=== PATIENT | female | born 1955 | race American Indian/Alaskan Native ===

== ENCOUNTER 2017-11-15 08:33 | Outpatient (CLI) | payer OTHER ==
--- NOTE | 2017-11-15 11:22 | Mammography Report ---
BILATERAL DIGITAL SCREENING MAMMOGRAM with CAD: 11/15/17 CLINICAL: Routine screening. COMPARISON:None available. However, a prior mammogram was apparently done at [facility]. FINDINGS: The breasts are mostly fatty with a few bilateral residual retroareolar fibroglandular densities.An oval left outer circumscribed mass requires comparison with the prior mammogram.Bilateral partially calcified benign fibroadenomas. No architectural distortion or suspicious calcifications. IMPRESSION: Left breast mass requiring further evaluation. BI-RADS CATEGORY: 0 -- Additional Evaluation Required RECOMMENDATION: Comparison with a previous mammogram. We will attempt to obtain a prior mammogram for comparison. If we do not obtain a prior mammogram within 30 days, a revised report will be issued recommending a recall for additional imaging. Please be advised that the patient should not schedule an appointment for return until adequate time (at least 2 weeks) has passed for us to obtain the prior mammogram. ACR BI-RADS MAMMOGRAPHIC CODES: 0 = Needs additional imaging evaluation; 1 = Negative; 2 = Benign; 3 = Probably benign; 4 = Suspicious; 5 = Malignant; 6 = Known biopsy-proven malignancy COMMENT: 1. Dense breast tissue, i.e., adenosis, fibrocystic changes, etc., may obscure an underlying neoplasm. 2. Approximately 10% of cancers are not detected with mammography. 3. A negative mammography report should not delay biopsy if a clinically suspicious mass is present. COMMENT: Patient follow-up letters are generated via our [employer] application.
== END 2017-11-15 08:34 | disposition home or self-care (01) ==
LOC: SPVWC 08:33 → EDBD 09:00
PROVIDERS: ATTEND Family Medicine
DX: Z12.31 Encounter for screening mammogram for malignant neoplasm of breast (principal)
CPT/HCPCS: 77067

== ENCOUNTER 2017-12-04 08:03 | Outpatient (CLI) | payer OTHER ==
--- NOTE | 2017-12-04 09:55 | Ultrasound Report ---
LEFT DIGITAL DIAGNOSTIC MAMMOGRAM and LEFT BREAST ULTRASOUND: 12/04/17 08:03:00 CLINICAL: Recall to evaluate a mass. COMPARISON:11/15/17 screening FINDINGS: ML and spot magnification MLO and CC views were performed and demonstrate a persistent oval circumscribed mass at 3 o'clock approximately 3 cm from the nipple. Ultrasound of the left breast was performed from 11 o'clock to 3 o'clock. An oval solid hypoechoic slightly irregular mass at 3 o'clock 3 cm from the nipple correlates with the mammographic mass. It produces mild shadowing and measures 1.2 x 0.8 x 1.3 cm. An oval solid hypoechoic relatively smooth shadowing mass at 11 o'clock 6 cm from nipple measures 7 x 4 x 3 mm.In retrospect it is identifiable on the screening mammogram. A bilobed solid hypoechoic mass at 11 o'clock 6 cm from the nipple measures 1.0 x 1.0 x 0.6 cm. It contains calcifications and correlates with a benign appearing mass on the mammogram. An oval solid hypoechoic mass at 12 o'clock 2 cm from the nipple measures 7 x 4 x 6 mm. It is not identifiable on the mammogram. IMPRESSION: Three solid breast masses at 12 o'clock, 11 o'clock and 3 o'clock with morphologic features suggestive of benign fibroadenomas. And an Additional .0 cm solid mass at 11 o'clock with features which are diagnostic of benign fibroadenoma . BI-RADS CATEGORY: 3 -- Probably Benign RECOMMENDATION: Six month followup left breast ultrasound. At that time, we may also have received a comparison studies which will be helpful in determining the significance of these three probably benign masses. ACR BI-RADS MAMMOGRAPHIC CODES: 0 = Needs additional imaging evaluation; 1 = Negative; 2 = Benign; 3 = Probably benign; 4 = Suspicious; 5 = Malignant; 6 = Known biopsy-proven malignancy COMMENT: 1. Dense breast tissue, i.e., adenosis, fibrocystic changes, etc., may obscure an underlying neoplasm. 2. Approximately 10% of cancers are not detected with mammography. 3. A negative mammography report should not delay biopsy if a clinically suspicious mass is present. COMMENT: Patient follow-up letters are generated via our [employer] application.
== END 2017-12-04 08:04 | disposition home or self-care (01) ==
LOC: SPVWC 08:03
PROVIDERS: ATTEND Family Medicine
DX: D24.2 Benign neoplasm of left breast (principal)

== ENCOUNTER 2018-08-28 09:53 | Outpatient (CLI) | payer OTHER ==
--- NOTE | 2018-08-28 14:39 | Ultrasound Report ---
LEFT BREAST ULTRASOUND: 08/28/18 09:53:00 CLINICAL: 6 month followup for 4 solid masses. COMPARISON: 12/04/17 FINDINGS: Ultrasoundof the left breast demonstrated 3 slightly smaller solid hypoechoic masses at 11 o'clock 6 cm segment of the, 11:30 o'clock 6 cm from nipple and at 12 o'clock 2 cm from the nipple. They measure 9 x 6 x 10 mm, 5 x 3 x 5 mm and 5 x 3 x 5 mm respectively. All of the masses are smaller compared to last exam. In addition a solid smooth oval hypoechoic mass at 3 o'clock 3 cm from the nipple is slightly smaller and measures 11 x 9 mm compared to 12 x 8 x 13 mm. IMPRESSION: 4 solid left benign breast masses which are smaller compared to the last exam. BI-RADS 2 - - Benign RECOMMENDATION: Routine mammographic screening.
== END 2018-08-28 09:54 | disposition home or self-care (01) ==
LOC: SPVWC 09:53
PROVIDERS: ATTEND Family Medicine
DX: N63.22 Unspecified lump in the left breast, upper inner quadrant (principal)